=== PATIENT | female | born 1965 | race Caucasian/White ===

== ENCOUNTER 2016-12-01 16:29 | Inpatient (IN) ==
[2016-12-01 16:56] LABS: BASO% 0.2 % (0.0-0.8); EOS# 0.22 X1000 (0.0-0.7); EOS% 2.3 % (0.0-10.0); HEMATOCRIT 41.3 % (37.0-47.0); HEMOGLOBIN 14.1 g/dL (12.0-16.0); IMM GRAN# 0.03 X1000 (0.0-0.04); IMM GRAN% 0.3 % (0.0-0.5); LYMPH# 0.74 X1000 (1.2-3.4); LYMPH% 7.6 % (20.5-51.1); MANUAL DIFF NEEDED? NO; MCH 28.4 PG (27-31); MCHC 34.1 g/dL (33-37); MCV 83.1 FL (81-99); MONO% 3.1 % (1.7-9.3); MPV 9.7 FL (7.4-10.4); NEUT% 86.5 % (42.2-75.2); PLT 313 X1000 (130-400); RBC 4.97 XMIL (4.2-5.4)
[2016-12-01 17:10] LABS: AGAP 16; ALBUMIN 3.5 g/dL (3.5-5.0); ALKALINE PHOSPHATASE 75 U/L (32-104); AMYLASE 26 U/L (20-200); BUN 18 mg/dL (8-22); CALCIUM 8.6 mg/dL (8.8-10.2); CHLORIDE 95 mmol/L (98-107); COSMO 274; GOT 9 U/L (10-30); GPT 7 U/L (10-36); LIPASE 22 U/L (13-60); POTASSIUM 4.2 mmol/L (3.5-5.1); SODIUM 132 mmol/L (136-145); TCO2 21 mmol/L (25-35); TOTAL BILIRUBIN 0.66 mg/dL (0.20-1.00); TOTAL PROTEIN 7.4 g/dL (6.3-8.3)
[2016-12-01 17:10] LABS: URINE MICRO REVIEW NEEDED? NO; URINE SOURCE CLEAN CATCH
[2016-12-01 17:15] LABS: BILIRUBIN URINE NEGATIVE (NEGATIVE); BLOOD URINE LARGE (NEGATIVE); COLOR YELLOW; GLUCOSE URINE 200 mg/dL (NEGATIVE); LEUKOCYTES URINE LARGE (NEGATIVE); NITRITE URINE NEGATIVE (NEGATIVE); PH URINE 5.5; PROTEIN URINE 30 mg/dL (NEGATIVE); SP GRAVITY URINE 1.024; TURBIDITY URINE HAZY (CLEAR); UROBILINOGEN URINE NORMAL (NORMAL)
[2016-12-01 17:16] LABS: UR EPITHELIAL CELLS <10 /HPF (<10); URINE BACTERIA 2+ /HPF; URINE CULTURE NEEDED? YES; URINE RBC TNTC /HPF (<10); URINE WBC TNTC /HPF (<10)
[2016-12-01] MEDS ORDERED: ROCEPHIN 1 GM/NS 1 GM/50 ML IVPB IV ONE (20:01)
[2016-12-01] MEDS ORDERED: NS 1,000 ML IV SCH (20:01)
--- NOTE | 2016-12-01 22:19 | PROVIDER DOCUMENTATION ---
This chart was entered by Sumi Grove Scribe, acting as scribe for Santos Souza MD. HPI-Abdominal Pain/GI Problem - General Chief Complaint: N/V/D Stated Complaint: n/v/d Time Seen by Provider: 12/01/16 19:49 Source: patient Allergies/Adverse Reactions: Patient Allergies Allergy/AdvReac Type Severity Reaction Status Date / Time levofloxacin [From Levaquin] Allergy Unknown Verified 12/01/16 18:01 metronidazole [From Flagyl] Allergy Unknown Verified 12/01/16 18:01 pseudoephedrine Allergy Unknown Verified 12/01/16 18:01 Home Medications: Home Medication List Medication Instructions Recorded Confirmed Last Taken Type NK [No Home Medications] 12/01/16 12/01/16 Unknown History - History of Present Illness-ABD Nature of Presenting Problems: 51 year old F presents to the ED with a cc of nausea, vomiting, diarrhea, and ABD pain with an onset of this morning. Abdominal Pain Onset Location: reports: generalized abdomen Pain Radiation: reports: no radiation Quality of Pain: reports: aching Severity in ED: reports: mild Onset/Duration: reports: this morning Timing: reports: still present Activities at Onset: reports: none Associated Symptoms: reports: diarrhea, nausea, vomiting Bruising or Bleeding Gums?: No Similar Symptoms Previously?: No Recently seen or treated by another doctor?: No Review of Systems - Adult - REVIEW OF SYSTEMS - ADULT Constitutional: denies: chills, fever Eyes: reports: no symptoms reported Ears, Nose, Mouth & Throat: reports: no symptoms reported Cardiovascular: denies: chest pain, palpitations Respiratory: denies: cough, shortness of breath Gastrointestinal: reports: abdominal pain, diarrhea, nausea, vomiting Genitourinary: reports: no symptoms reported Musculoskeletal: reports: no symptoms reported Integumentary: reports: no symptoms reported Neurological: reports: no symptoms reported Psychiatric: reports: no symptoms reported Endocrine: reports: no symptoms reported Hematologic/Lymphatic: reports: no symptoms reported Allergic/Immunologic: reports: no symptoms reported All Other Systems: Reviewed and Negative Past History - Adult - PAST MEDICAL HISTORY-ADULT Review of Records: reports: Nursing Assessment Review, Medications Reviewed Major Childhood Illnesses: reports: denies history - PRIOR SURGERIES/PROCEDURES Surgical/Procedure History: reports: appendectomy, cholecystectomy, joint replacement - IMMUNIZATION STATUS Childhood Immunizations: See Nurse Assessment Flu Vaccine: See Nurse Assessment - SOCIAL HISTORY Smoking: non-smoker Substance Use: none/never Alcohol Use Frequency: never Physical Exam-General - PHYSICAL EXAM-ADULT Initial Vital Signs Reviewed: Yes - CONSTITUTIONAL General Appearance: lethargic - RESPIRATORY Respiratory: chest non-tender, lungs clear, normal breath sounds - CARDIOVASCULAR Cardiovascular: normal peripheral pulses, regular rate, rhythm, no edema - GASTROINTESTINAL (ABDOMEN) Abdominal Exam: normal bowel sounds, soft, tenderness (upper ABD) - MUSCULOSKELETAL Back Exam: no CVA tenderness - SKIN Integumentary: normal color, normal turgor, warm/dry Progress - PLAN OF CARE/RESULTS Progress/Plan/Lab Results: Vital Signs - 8 hr 12/01/16 16:31 Temperature 98.0 F Pulse Rate 114 H Respiratory Rate 22 Blood Pressure 133/68 O2 Sat by Pulse Oximetry 99 Laboratory Results - last 24 hr 12/01/16 12/01/16 12/01/16 16:43 16:43 16:56 WBC 9.73 RBC 4.97 Hgb 14.1 Hct 41.3 MCV 83.1 MCH 28.4 MCHC 34.1 RDW Std Deviation 13.7 Plt Count 313 MPV 9.7 Immature Gran % (Auto) 0.3 Neut % (Auto) 86.5 H Lymph % (Auto) 7.6 L [place] % (Auto) 3.1 Eos % (Auto) 2.3 Baso % (Auto) 0.2 Immature Gran # (Auto) 0.03 Neut # (Auto) 8.42 H Lymph # (Auto) 0.74 L [place] # (Auto) 0.30 Eos # (Auto) 0.22 Baso # (Auto) 0.02 Sodium 132 L Potassium 4.2 Chloride 95 L Carbon Dioxide 21 L Anion Gap 16 BUN 18 Creatinine 0.7 Estimated GFR/1.73 m2 > 60 BUN/Creatinine Ratio 26 Glucose 243 H Calculated Osmolality 274 Calcium 8.6 L Total Bilirubin 0.66 AST 9 L ALT 7 L Alkaline Phosphatase 75 Total Protein 7.4 Albumin 3.5 Globulin 3.9 Albumin/Globulin Ratio 0.9 Amylase 26 Lipase 22 Urine Source CLEAN CATCH Urine Color YELLOW Urine Turbidity HAZY Urine pH 5.5 Ur Specific [place] 1.024 Urine Protein 30 A Ur Glucose (Stick) 200 A Ur Ketones (Stick) NEGATIVE Urine Blood LARGE A Urine Nitrite NEGATIVE Urine Bilirubin NEGATIVE Urobilinogen Dipstick NORMAL Urine Leukocytes LARGE A Urine WBC (Auto) TNTC A Urine RBC (Auto) TNTC A U Epithel Cells (Auto) <10 Urine Bacteria (Auto) 2+ Orders Category Date Time Status NPO Diet 12/01/16 16:36 Active AMYLASE [CHEM] Stat Lab 12/01/16 16:43 Completed BLOOD CULTURE [BLDCUL] Stat Lab 12/01/16 20:01 Uncollected CBC WITH ELECTRONIC DIFF [HEME] Stat Lab 12/01/16 16:43 Completed COMPREHENSIVE METABOLIC PANEL [CHEM] Stat Lab 12/01/16 16:43 Completed LIPASE [CHEM] Stat Lab 12/01/16 16:43 Completed UA NIMS W/REFLEX CULT [URINALYSIS] Stat Lab 12/01/16 16:56 Completed URINE CULTURE [RM] Routine Lab 12/01/16 17:18 Received Result Diagrams: 12/01/16 16:43 12/01/16 16:43 - CONSULTS/PCP/HOSPITALIST Notification #1 *Consult/PCP/Hospitalist*: Dr. Baumann(hospitalist) Time Discussed: 21:18 Consult Disposition: Will see in ED, Admit Departure - Departure Time of Disposition Decision: 22:18 DIAGNOSIS: Sepsis Qualifiers: Sepsis type: sepsis due to unspecified organism Qualified Code(s): A41.9 - Sepsis, unspecified organism Disposition: ADMITTED INPATIENT 09 Certified Medical Emergency: Emergent Condition: Fair Referrals and Follow-Ups: None,PCP [Primary Care Provider] - This chart was documented by the indicated scribe, (Sumi Grove Scribe) and accurately reflects the services I performed and decisions made by me, Santos Souza MD, as attested by the provider's signature.
--- NOTE | 2016-12-01 23:10 | HISTORY AND PHYSICAL ---
CHIEF COMPLAINT: Nausea, vomiting, diarrhea and not feeling well x1 day. HISTORY OF PRESENTING ILLNESS: A 51-year-old female, without any significant past medical history, following a 1-day history of having intractable nausea and vomiting. She states that she was having diarrhea throughout the day. She felt weak, and subsequently had come to the emergency department. At the ER, she was evaluated. She was found to have a urinary tract infection. She was somewhat fatigued and lethargic, and due to her presenting symptoms, it was thought that we would place her in observation for further evaluation and management. At the time of my examination, she had denied any headache, visual changes, chest pain, shortness of breath, hemoptysis or any weight changes, but complained of nausea, vomiting and diarrhea. PAST MEDICAL HISTORY: None. PAST SURGICAL HISTORY: Cholecystectomy, appendectomy, sinus surgery, right knee arthroscopy. ALLERGIES: Levaquin, Flagyl, pseudoepherine CURRENT MEDICATION LIST: As in the MAR. SOCIAL HISTORY: She denies any history of smoking, alcohol or illicit drug use. FAMILY HISTORY: Positive for coronary disease in father. REVIEW OF SYSTEMS: Twelve point review of systems is as in HPI. Other systems negative. PHYSICAL EXAMINATION: GENERAL: Cooperative, friendly female. She is resting more comfortably now. VITAL SIGNS: Temperature 98.0, pulse 114, respiration 22, blood pressure 133/ 68. She is sating 99%. HEENT: Atraumatic, normocephalic. Extraocular movements intact. PERRLA. NECK: No masses. CHEST: Clear to auscultation. CARDIOVASCULAR: Regular rate and rhythm. ABDOMEN: Soft, some mild tenderness. EXTREMITIES: There is +1 edema. NEURO: She is awake, alert, oriented x3. : No bladder distention. SKIN: Warm. LABORATORIES AND STUDIES: WBCs 9.73, hemoglobin 14.1, hematocrit 41.3, platelets 313,000. Sodium 132, potassium 4.2, chloride 95, CO2 is 21, BUN is 18, creatinine 3.7, glucose is 243. Urine shows large leukocytes and +2 bacteria. ASSESSMENT: A 51-year-old female, who has presented to the emergency department with a 1-day history of having nausea, vomiting and diarrhea. She was found to be somewhat lethargic and fatigued. Due to presenting symptoms, we will place her in for observation for further evaluation and management. 1. Nausea, vomiting and diarrhea, suspected acute gastroenteritis. 2. UTI. 3. Generalized weakness. PLAN: 1. We will admit patient to medical floor. 2. We will continue with supportive treatment with IV fluids, antiemetics, p.o. pain control as needed. 3. We will check urine cultures, and start patient on IV antibiotics. 4. We will check routine laboratories, including thyroid profile. 5. Put patient on DVT prophylaxis with SCD's. 6. We will continue to follow and reassess. cc: Keven Baumann MD MTDD
[2016-12-02] MEDS ORDERED: ZOFRAN IV PRN (00:57)
[2016-12-02] MEDS ORDERED: NS 1,000 ML IV SCH (00:57)
[2016-12-02] MEDS: ROCEPHIN 1 GM/NS 1 GM/50 ML IVPB IV SCH (01:49)
[2016-12-02 06:20] LABS: MANUAL DIFF NEEDED? NO
[2016-12-02 06:23] LABS: BASO% 0.3 % (0.0-0.8); EOS# 0.18 X1000 (0.0-0.7); HEMATOCRIT 38.6 % (37.0-47.0); HEMOGLOBIN 12.9 g/dL (12.0-16.0); IMM GRAN# 0.02 X1000 (0.0-0.04); IMM GRAN% 0.3 % (0.0-0.5); LYMPH# 1.27 X1000 (1.2-3.4); LYMPH% 20.9 % (20.5-51.1); MCH 28.5 PG (27-31); MCHC 33.4 g/dL (33-37); MCV 85.2 FL (81-99); MONO# 0.33 X1000 (0.11-0.59); MONO% 5.4 % (1.7-9.3); NEUT% 70.1 % (42.2-75.2); PLT 263 X1000 (130-400); RBC 4.53 XMIL (4.2-5.4)
[2016-12-02 07:03] LABS: AGAP 13; BUN 13 mg/dL (8-22); CALCIUM 8.2 mg/dL (8.8-10.2); CHLORIDE 101 mmol/L (98-107); COSMO 283; POTASSIUM 3.8 mmol/L (3.5-5.1); SODIUM 138 mmol/L (136-145); TCO2 24 mmol/L (25-35)
--- NOTE | 2016-12-02 08:06 | Diag Imaging Result Document ---
PROCEDURE NAME: CHEST-PORTABLE - 12/01/2016 SINGLE FRONTAL RADIOGRAPH OF THE CHEST: COMPARISON: None available. FINDINGS: The lungs are grossly clear. There is no discrete pleural fluid collection or pneumothorax. The cardiomediastinal silhouette and upper airway are grossly unremarkable. IMPRESSION: No evidence of acute chest pathology.
[2016-12-02] MEDS ORDERED: VANCOMYCIN IV PER PHARMACY MISC SCH (13:15)
[2016-12-02] MEDS ORDERED: TYLENOL PO PRN (14:18)
--- NOTE | 2016-12-02 14:47 | PROGRESS NOTE ---
DATE: 12/02/2016 SUBJECTIVE: She feels a little bit better. Nausea, vomiting has improved. She is going to try some clears today and see how she does. OBJECTIVE: Vital Signs: 138/72 BP, 81 heart rate, respiratory rate 20, temperature 98.5, 97% on room air. Cardiovascular: Regular rate and rhythm. Pulmonary: Bilateral breath sounds. Clear to auscultation. GI: Was soft. Nontender, nondistended. Bowel sounds are positive. LABORATORY DATA: White count 6. Basic is normal. Glucose is up a little bit at 231. ASSESSMENT AND PLAN: She is not on any home medications, so she may have some new onset diabetes we are unaware of. I am going to track her blood sugars and check a hemoglobin A1c and will continue to follow that. 1. Disposition: Likely discharge tomorrow. She may need social service report. 2. I am going to start metformin once she is clinically stabilized if she is persistently hyperglycemic, although she has 2 sugars above 200. In any case, possibly home tomorrow if stable. 3. Her urine culture, urinary tract infection is #1 problem. Continue empiric antibiotics. Discharged on Cipro because that is affordable. 4. Diabetes: Will continue to monitor. 5. Nausea, vomiting, is resolving. cc: Pasha Schilling MD
[2016-12-02] MEDS: VANCOMYCIN 1.5 GM in NS 250 ML IV SCH (16:25)
[2016-12-02] MEDS: HUMULIN R SUBQ SCH ×2 (17:39→23:29)
[2016-12-02] MEDS: NS 1,000 ML IV SCH (17:40)
[2016-12-03] MEDS: ROCEPHIN 1 GM/NS 1 GM/50 ML IVPB IV SCH ×2 (00:58→23:44)
[2016-12-03] MEDS: NS 1,000 ML IV SCH (04:17)
[2016-12-03] MEDS: VANCOMYCIN 1.5 GM in NS 250 ML IV SCH ×3 (04:18→17:23)
[2016-12-03] MEDS: HUMULIN R SUBQ SCH ×4 (06:36→21:59)
[2016-12-03 06:39] LABS: HEMATOCRIT 37.8 % (37.0-47.0); HEMOGLOBIN 12.2 g/dL (12.0-16.0); MCH 28.2 PG (27-31); MCHC 32.3 g/dL (33-37); MCV 87.3 FL (81-99); MPV 9.6 FL (7.4-10.4); RBC 4.33 XMIL (4.2-5.4)
[2016-12-03 07:05] LABS: AGAP 10; BUN 8 mg/dL (8-22); CALCIUM 8.4 mg/dL (8.8-10.2); CHLORIDE 105 mmol/L (98-107); COSMO 283; POTASSIUM 4.2 mmol/L (3.5-5.1); SODIUM 141 mmol/L (136-145); TCO2 26 mmol/L (25-35)
[2016-12-03 07:10] LABS: HEMOGLOBIN A1C 10.6 % (4.8-6.0)
[2016-12-03] MEDS ORDERED: GLUCOPHAGE PO ONE (11:37)
[2016-12-03] MEDS ORDERED: SALINE LOCK IV FLUID XX ONE (11:46)
--- NOTE | 2016-12-03 12:31 | PROGRESS NOTE ---
DATE: 12/03/2016 SUBJECTIVE: The patient has no complaints. Still some nausea, vomiting last night. No further diarrhea. Still some abdominal cramping, but is better today. OBJECTIVE: Vital Signs: Blood pressure 158/73, heart rate of 82, respiratory rate 18, temperature 98 degrees, 98% on room air. Cardiovascular: Regular rate and rhythm. Pulmonary: Bilateral breath sounds. Clear to auscultation. Gastrointestinal: Abdomen soft, nontender, nondistended. Bowel sounds are positive. LABORATORY DATA: White count normal. Glucose down to 152. A1c is 10.6. PROBLEM LIST: 1. Urinary tract infection. They are waiting on culture. Gram-negative rods today. She is empirically on Rocephin. 2. New onset diabetes. We will initiate metformin and set up for diabetes teaching, dietitian educated on checking her glucose levels. She had lost about 140 pounds on her own but is still with a BMI of 44, so I would consider her morbidly obese, metformin should help in that end. Hopefully nausea and vomiting issues are short-term but may also be related to a gastroparesis issue but we will follow accordingly. 3. Positive blood culture 1/2. Micro states it may be a viridans strep versus a contaminant. Still waiting on final identification before she can be discharged. She is on vancomycin currently. DISPOSITION: Possibly home tomorrow if multiple issues are resolved. cc: Pasha Schilling MD
[2016-12-03] MEDS: GLUCOPHAGE PO SCH (19:46)
[2016-12-04] MEDS: ROCEPHIN 1 GM/NS 1 GM/50 ML IVPB IV SCH (03:39)
[2016-12-04] MEDS: VANCOMYCIN 1.5 GM in NS 250 ML IV SCH ×2 (03:40→17:35)
[2016-12-04 06:11] LABS: HEMATOCRIT 36.7 % (37.0-47.0); HEMOGLOBIN 11.9 g/dL (12.0-16.0); MCH 28.1 PG (27-31); MCHC 32.4 g/dL (33-37); MCV 86.6 FL (81-99); MPV 9.6 FL (7.4-10.4); RBC 4.24 XMIL (4.2-5.4)
[2016-12-04 06:22] LABS: AGAP 12; BUN 10 mg/dL (8-22); CALCIUM 8.1 mg/dL (8.8-10.2); CHLORIDE 101 mmol/L (98-107); COSMO 279; SODIUM 138 mmol/L (136-145); TCO2 25 mmol/L (25-35)
[2016-12-04] MEDS: HUMULIN R SUBQ SCH ×3 (06:28→18:21)
[2016-12-04] MEDS: GLUCOPHAGE PO SCH ×2 (11:46→17:35)
--- NOTE | 2016-12-04 12:36 | PROGRESS NOTE ---
DATE: 12/04/2016 Presented with nausea, vomiting, diarrhea and not feeling well. She felt like she had a gastroenteritis and had a lot of vomiting. Appeared to be dehydrated. No p.o. intake. 51-year- old, with no significant past medical history. Following a 1-day history of intractable nausea, vomiting, states that she was having diarrhea through the day. [place] weak and subsequently came to the emergency department. In the ER was evaluated and found to have urinary tract infection. She was somewhat fatigued and lethargic due to her presenting symptoms. She was put in observation evaluation and treatment. PAST SURGICAL HISTORY: 1. Status post cholecystectomy. 2. Status post appendectomy. 3. Status post sinus surgery. 4. Status post right knee arthroplasty. No significant medical history. She states she feels much better today and is eating solid food. Remained afebrile. Chest x-ray was negative. EXAM: Temp 98.4 degrees, pulse 74, respirations 16, blood pressure 160/70. CVP less than 6 cm.Lungs: Clear in all lung monte. Cardiovascular: Regular rhythm and rate without murmur or S3. Urine output was over 4 L. Blood sugar 180, 152, 189. White blood cell count 7710, hematocrit 36, platelet count 244,000. Sodium 138, potassium 4.0, chloride 101, bicarb 25, BUN 10, creatinine 0.6, blood sugar 180, 152, 168, 189. Calcium 8.9. ASSESSMENT AND PLAN: 1. Urinary tract infection, gram-negative be. Her cultures revealed E. coli from the urine. Blood culture 1 out of 2 grew strep, strep mitis and strep oralis which were sensitive to levofloxacin and sensitive to vancomycin. It was 1 out of 2 cultures. E. coli that was cultured in the urine was sensitive to everything. She was treated with ceftriaxone. She has remained afebrile and I suspect that 1 blood culture was contaminant E. coli urinary tract infection. 2. She was found to have diabetes, blood sugars high so getting training checking her fingersticks and learning how to learn a little bit about the diet. She was put on metformin 850 mg p.o. twice a day. She feels much better. Note she also got treated vancomycin so if she is doing better I will let her go home in the morning. Get her insulin arranged and she feels stronger and eating well. cc: Cj Garces MD
[2016-12-05] MEDS: HUMULIN R SUBQ SCH ×3 (00:04→11:39)
[2016-12-05] MEDS: ROCEPHIN 1 GM/NS 1 GM/50 ML IVPB IV SCH (00:58)
[2016-12-05] MEDS: VANCOMYCIN 1.5 GM in NS 250 ML IV SCH (04:14)
[2016-12-05] MEDS: GLUCOPHAGE PO SCH (10:02)
[2016-12-05 13:36] VITALS: BP 141/60
--- NOTE | 2016-12-05 14:08 | DISCHARGE SUMMARY ---
ADMISSION DATE: 12/01/2016 DISCHARGE DATE: 12/05/2016 HISTORY OF PRESENT ILLNESS/HOSPITAL COURSE: Ms. Fontanez is a 51-year-old. She does not have any significant past medical history. She had a day history of intractable nausea and vomiting. States she was having diarrhea through the day. [place] weak and subsequently came to the emergency room. On evaluation in the emergency room, felt she might have a urinary tract infection, somewhat fatigued and lethargic and thought that it would be well to come in for observation. Appears she had viral gastroenteritis. She seemed to improve with fluid. She was mildly volume contracted and dehydrated. Her past surgical history is status post cholecystectomy, appendectomy, sinus surgery, right knee arthroscopy. Note that we noted in the hospital that her blood sugars were running high and she did not know she had diabetes but diagnosed with diabetes. We gave her some training, gave her a glucometer, and wanted to start her on some therapy. [place] she could go home on 12/05/2016. Her discharge orders will be as follows: She will take Glucophage 850 mg p.o. b.i.d., and she is going to check sugars. Follow up with her primary care in a couple weeks and was given the basics of a diabetic diet. Note that the urine grew E. coli. She did have 1 of 2 cultures that were positive for strep mitis and strep oralis which I feel were contaminant. The E. coli in the urine was sensitive to everything and she was well treated with that with 4 doses of ceftriaxone. cc: Cj Garces MD
== END 2016-12-05 16:16 | disposition home or self-care (01) ==
LOC: ED 16:29 → 4N 16:29 → SUATTDRO 16:30 → OBSVTOIN 16:30
PROVIDERS: ATTEND Emergency Medicine